=== PATIENT | female | born 1995 | race Caucasian/White ===

== ENCOUNTER 2017-06-15 14:31 | Emergency (ER) | payer SELFPAY ==
[~2017-06-15] VITALS: Ht 165.1 cm; Wt 90.0 kg
[2017-06-15 15:52] LABS: HEMATOCRIT 43.3 % (37.0-47.0); HEMOGLOBIN 14.2 g/dl (12.0-16.0); IMMATURE GRANULOCYTES 0.5 % (0.0-1.0); MEAN CELL VOLUME 83.1 fL CALC (80.0-100.0); MEAN CORPUSCULAR HGB 27.3 pG CALC (26.0-32.0); MEAN CORPUSCULAR HGB CONC 32.8 g/L CALC (32.0-36.0); NEUT# 10.89 thou/uL (2.00-7.15); RED BLOOD COUNT 5.21 mill/uL (4.20-5.60); RED CELL DISTRI WIDTH 13.7 % (11.5-15.5)
[2017-06-15 15:59] LABS: INFLUENZA A NONE DETECTED (NONE DETECT); INFLUENZA B NONE DETECTED (NONE DETECT)
[2017-06-15 16:02] LABS: ALBUMIN 4.7 g/dL (3.2-5.0); ALKALINE PHOSPHATASE 120 u/l (38-126); ANION GAP 17 (6-22 (CALC)); BILIRUBIN, TOTAL 0.8 mg/dL (0.0-1.4); BUN 12 mg/dL (7-17); BUN/CREATININE RATIO 18 (12-20 (CALC)); CARBON DIOXIDE 25 mmol/l (22-30); CHLORIDE 108 mmol/l (95-108); CREATININE 0.7 mg/dL (0.5-1.0); GFR > 60 ML/MIN (>=60 (CALC)); GFR FOR AFR.AMER. > 60 ML/MIN (>=60 (CALC)); LIPASE 135 u/l (23-300); POTASSIUM 4.5 mmol/l (3.5-5.1); SGOT/AST 58 u/l (14-36); SGPT/ALT 67 u/l (9-52); SODIUM 145 mmol/l (137-146); TOTAL PROTEIN 8.5 g/dL (6.3-8.2)
[2017-06-15 17:23] LABS: URINE BILIRUBIN - DIPSTICK NEGATIVE (NEGATIVE); URINE BLOOD DIPSTICK NEGATIVE (NEGATIVE); URINE COLOR YELLOW; URINE GLUCOSE - DIPSTICK NEGATIVE (NEGATIVE); URINE KETONE NEGATIVE (NEGATIVE); URINE LEUK ESTERASE NEGATIVE (NEGATIVE); URINE NITRITE - DIPSTICK NEGATIVE (Negative); URINE PROTEIN - DIPSTICK NEGATIVE (NEG-TRACE); URINE SPECIFIC GRAVITY 1.015; URINE UROBILINOGEN - DIPSTICK 0.2 E.U./dL (0.2)
[2017-06-15 17:26] LABS: URINE CLARITY CLEAR
[2017-06-15] MEDS ORDERED: MOTRIN400 MG PO (17:50)
[2017-06-15] MEDS ORDERED: FLEXERIL5 MG PO (17:50)
[2017-06-15 17:59] VITALS: BP 105/63
== END 2017-06-15 18:15 | disposition home or self-care (01) | DRG 313 ==
LOC: ED 14:31
PROVIDERS: Family Medicine
DX: R07.89 Other chest pain (principal); R10.11 Right upper quadrant pain; R10.31 Right lower quadrant pain; R50.9 Fever, unspecified
CPT/HCPCS: Q9967

== ENCOUNTER 2018-06-17 18:49 | Emergency (ER) | payer BC ==
[~2018-06-17] VITALS: Ht 165.1 cm; Wt 100.0 kg
[~2018-06-17 18:49] MED LIST: FLEXERIL5 MG PO; MOTRIN400 MG PO
[2018-06-17 19:30] LABS: URINE BILIRUBIN - DIPSTICK NEGATIVE (NEGATIVE); URINE BLOOD DIPSTICK NEGATIVE (NEGATIVE); URINE COLOR YELLOW; URINE GLUCOSE - DIPSTICK NEGATIVE (NEGATIVE); URINE KETONE NEGATIVE (NEGATIVE); URINE LEUK ESTERASE NEGATIVE (NEGATIVE); URINE NITRITE - DIPSTICK NEGATIVE (Negative); URINE PROTEIN - DIPSTICK NEGATIVE (NEG-TRACE); URINE UROBILINOGEN - DIPSTICK 0.2 E.U./dL (0.2)
[2018-06-17] MEDS ORDERED: AMOXICILLI250 MG/5 M PO (20:32)
[2018-06-17 20:40] VITALS: BP 125/75
== END 2018-06-17 20:40 | disposition home or self-care (01) | DRG 153 ==
LOC: ED 18:49
PROVIDERS: Family Medicine
DX: J02.0 Streptococcal pharyngitis (principal)